=== PATIENT | male | born 2000 | race Caucasian/White ===

== ENCOUNTER 2022-05-17 13:43 | Emergency (ER) | payer OTHER, SELFPAY ==
--- NOTE | ~2022-05-17 | XR_ITS ---
EXAMINATION: XR chest 2V Exam Date/Time: 05/17/2022 17:40 ELECTRICAL TEST TECHNICIAN HISTORY: chest and burning back pain X 1WK, NO CARDIAC HX, NO LUNG HX Comparison: 04/02/2005. RESULT: Lines, tubes, and devices: None. Lungs and pleura: Clear. Cardiomediastinal silhouette: Unremarkable. Other: No acute osseous or upper abdominal finding. IMPRESSION: No acute cardiopulmonary process. Reviewed, dictated and finalized at location K. TRICAL TEST TECHNICIAN
[2022-05-17 14:09] VITALS: BP 173/96; PULSE 75; RESP 16; O2SAT 99
--- NOTE | 2022-05-17 14:14 | ECG_ITS ---
Measurements Intervals [place] Rate: 77 P: 5 [place]: 121 QRS: 73 QRSD: 85 T: 20 QT: 358 QTc: 406 Interpretive Statements SINUS RHYTHM DELAYED PRECORDIAL R/S TRANSITION BORDERLINE ECG NO PREVIOUS ECG AVAILABLE FOR COMPARISON Electronically Signed On 05-17-2022 18:35:31 POST MANAGER by Joe Millan D.O.
[2022-05-17 16:19] LABS: Basophils Percent Auto 0.6 % (0.2-1.2); Eosinophils Percent Auto 0.6 % (0-4.4); Hematocrit 46.5 % (42.0-52.0); Hemoglobin 16.1 g/dL (14.0-18.0); Immature Granulocyte Absolute 0.02 K/mm3 (0.00-0.031); Immature Granulocyte Percent A 0.3 % (0-0.5); Lymphocytes Absolute Auto 0.83 K/mm3 (0.9-3.2); Lymphocytes Percent Auto 12.5 % (18.3-44.2); Mean Corpuscular HGB Conc 34.6 g/dl (32-36); Mean Corpuscular Hemoglobin 30.7 pg (26-34); Mean Corpuscular Volume 88.7 fl (80-100); Mean Platelet Volume 9.2 fl (7.4-10.4); Monocytes Absolute Auto 0.3 K/mm3 (0.1-0.6); Neutrophils Absolute Auto 5.4 K/mm3 (1.3-6.7); Platelet Count Result 266 k/mm3 (150-375); Red Blood Count 5.24 M/mm3 (4.6-6.20); Red Cell Distribution Width 12.2 % (11.5-14.5); White Blood Count 6.6 K/mm3 (4.5-10.0)
[2022-05-17 16:20] LABS: Add Urine Microscopic? NO; Appearance Urine Clear (Clear); Bilirubin Urine Negative (Negative); Blood Urine Negative (Negative); Color Urine Yellow (Yellow); Glucose Urine UA Negative (Negative); Ketones Urine Negative (Negative); Leukocyte Esterase Ur Negative LEU/UL (Negative); Nitrate Urine Negative (Negative); Protein Urine Negative (Negative); Specific Grav Ur 1.025 (1.001-1.035); Urobilinogen Urine 0.2 mg/dL (<2.0); pH Urine 6.5 (5.0-9.0)
[2022-05-17 16:31] LABS: Alanine Aminotransferase 32 U/L (6-50); Albumin Level 4.8 g/dL (3.5-5.1); Alkaline Phosphatase 51 U/L (38-126); Anion Gap 8 mmol/L (8-16); Aspartate Amino Transferase 30 U/L (17-59); Bilirubin,Total 1.3 mg/dL (0.2-1.3); Blood Urea Nitrogen 16 mg/dL (9-20); Calcium 9.3 mg/dL (8.4-10.2); Carbon Dioxide 27 mmol/L (22-30); Chloride 105 mmol/L (98-107); Estimated CRCL calculation 107 ml/min; Estimated Glomerular Filt Rate > 60; Glucose 93 mg/dL (65-110); Lipase 86 U/L (23-300); Potassium 4.3 mmol/L (3.4-5.0); Sodium 140 mmol/L (137-145)
[2022-05-17] MEDS: SODIUM CHLORIDE 0.9% IV 1,000 ML 999 ML IV CONT (17:30)
--- NOTE | 2022-05-17 17:35 | ED.GENADULT ---
HPI - General Adult General Chief complaint: Abdominal Pain Stated complaint: burning in back and chest Time Seen by Provider: 05/17/22 17:16 History of Present Illness HPI narrative: 22-year-old male presenting to the emergency department for evaluation of back pain and chest pain. Patient states yesterday he developed some midline back pain that he described as burning. Patient denies anything that affects the pain. Patient states this morning when he woke up he also had some burning into his chest. Patient denies any current chest pain or shortness of breath. Patient denies any prior history of coronary disease, cardiac issues or gallbladder disease. Patient describes the pain between his shoulder blades as a 2 out of 10. Does have history of asthma. Related Data Allergies Allergy/AdvReac Type Severity Reaction Status Date / Time nickel Allergy Mild Verified 11/06/09 14:50 Review of Systems Review of Systems: CONSTITUTIONAL: Denies fever, chills, or sweats. EYES: Denies visual changes, redness, or discharge. ENT: Denies rhinorrhea, congestion, sore throat, or otalgia. CARDIOVASCULAR: See HPI RESPIRATORY: Denies cough or dyspnea. GASTROINTESTINAL: Denies abdominal pain, nausea, vomiting, or diarrhea. GENITOURINARY: Denies dysuria or hematuria. SKIN: Denies rash or itching. MUSCULOSKELETAL: See HPI NEUROLOGIC: Denies headache, numbness, or weakness. Exam Narrative: APPEARANCE: Well appearing, no pain, no distress, well-nourished. HEAD: normocephalic, atraumatic. EYES: PERRLA/EOMI, conjunctivae clear. NOSE: Normal no drainage NECK: Supple. No adenopathy, no masses. RESPIRATORY: Airway patent, respirations nonlabored. Clear to auscultation bilaterally, no rales, rhonchi, wheezing. CARDIOVASCULAR: Regular rate and rhythm without murmurs rubs or gallops. ABDOMINAL: Soft, nontender, nondistended, normal bowel sounds MUSCULOSKELETAL: Moves all extremities. Strength/ROM intact, No edema, No calf tenderness. NEURO: Alert. Cranial nerves II through XII intact. Grossly intact SKIN: Warm, dry. Normal Color Course Course Emergency Course: Patient had a negative chest x-ray was afebrile with no leukocytosis. Patient's electrolytes are within normal limits and patient had a negative UA. Patient's pain is somewhat reproducible with palpation so I suspect muscular etiology over PE, ACS, pleuritis, or referred pain from gallbladder disease. Patient and family were updated on the results of the work-up and they were comfortable with the discharge plan for close follow-up with the patient's primary care physician. This is already scheduled for Tuesday. All questions and concerns were addressed. Vital Signs Vital signs: Vital Signs Pulse Rate 75 05/17/22 14:09 Respiratory Rate 16 05/17/22 14:09 Blood Pressure 173/96 H 05/17/22 14:09 Pulse Oximetry 99 05/17/22 14:09 Pulse Rate 74 05/17/22 19:13 Respiratory Rate 16 05/17/22 19:13 Blood Pressure 173/96 H 05/17/22 14:09 Pulse Oximetry 94 05/17/22 19:13 Medical Decision Making Vital Signs Vital Signs: Vital Signs Pulse Rate 75 05/17/22 14:09 Respiratory Rate 16 05/17/22 14:09 Blood Pressure 173/96 H 05/17/22 14:09 Pulse Oximetry 99 05/17/22 14:09 Pulse Rate 74 05/17/22 19:13 Respiratory Rate 16 05/17/22 19:13 Blood Pressure 173/96 H 05/17/22 14:09 Pulse Oximetry 94 05/17/22 19:13 Lab Data Lab results reviewed: Yes I reviewed the patient's lab results. 05/17/22 16:00 05/17/22 16:00 Labs: Lab Results 05/17/22 05/17/22 05/17/22 Range/Units 16:00 16:00 16:00 WBC 6.6 (4.5-10.0) K/mm3 RBC 5.24 (4.6-6.20) M/mm3 Hgb 16.1 (14.0-18.0) g/dL Hct 46.5 (42.0-52.0) % MCV 88.7 (80-100) fl MCH 30.7 (26-34) pg MCHC 34.6 (32-36) g/dl RDW 12.2 (11.5-14.5) % Plt Count 266 (150-375) k/mm3 MPV 9.2 (7.4-10.4) fl Immature Gran % (Auto) 0.
[2022-05-17] MEDS: PANTOPRAZOLE SODIUM IV 40 MG VIAL IV PUSH (17:54)
[2022-05-17] MEDS: BELLADONNA ALK/PHENOB ELIX 10 ML, MAG HYDROX/ALUMINUM HYD/SIMETH 30 ML, LIDOCAINE HCL 2... PO (17:55)
[2022-05-17 17:56] LABS: Amphetamine Screen Urine Negative (Negative); Barbiturate Screen Urine Negative (Negative); Benzodiazepines Screen Urine Negative (Negative); Cannabinoid Screen Urine Positive (Negative); Cocaine Screen Urine Negative (Negative); Methadone Screen Urine Negative (Negative); Opiate Screen Urine Negative (Negative); Phencyclidine Screen Urine Negative (Negative)
[2022-05-17 19:13] VITALS: PULSE 74; RESP 16; O2SAT 94
== END 2022-05-17 19:14 | disposition home or self-care (01) ==
PROVIDERS: Emergency Provider Emergency Medicine
DX: M54.9 Dorsalgia, unspecified (principal)
CPT/HCPCS: 36415; 71046; 80053; 80307; 81003; 83690; 85025; 93005; 96361; 96374; 99284; A9270; C9113; J7030

== ENCOUNTER 2022-05-31 07:49 | Outpatient (CLI) | payer OTHER, SELFPAY ==
--- NOTE | ~2022-05-31 | CT_ITS ---
EXAMINATION: CTA chest DATE: 05/31/2022 08:22 INDICATION: Chest pain TECHNIQUE: Computed tomography angiography (CTA) of the chest was performed with 100 mL Omnipaque-350 intravenous contrast timed to evaluate the pulmonary arteries. Coronal maximum intensity projection 3D-reconstructions were created by the technologist. Automated exposure control and iterative reconst ruction technique were employed. Exam dose: 508.90 mGy-cm total exam DLP. COMPARISON: 05/17/2022 PA and lateral chest FINDINGS: There is diagnostic contrast enhancement of the pulmonary arteries and no evidence of pulmonary embol ism. The lungs are clear of infiltrate or consolidation. Normal heart size. No pericardial or pleural effusion. No hilar or mediastinal mass lesion or lymphadenopathy. No thoracic aortic aneurysm or dissection. Normal morphology of the adrenal glands. Included skeletal structures are unremarkable. IMPRESSION: Negative examination; no evidence of pulmonary embolism Reviewed, dictated and finalized at Location A. Reviewed, dictated and finalized at location B. RITY SUPERVISOR
== END 2022-05-31 07:50 | disposition home or self-care (01) ==
DX: R07.9 Chest pain, unspecified (principal)
CPT/HCPCS: 71275; Q9967

== ENCOUNTER 2024-08-24 13:41 | Outpatient (CLI) | payer OTHER, SELFPAY ==
--- OUTSIDE RECORDS SUMMARY | 2024-08-24 13:44 | XMS_ITS | Clinical Summary ---
Author Organization [facility] Address [address] [place] [address] Care Team Providers Care Berry Picker Name Role Phone Unavailable Primary Care Provider Unavailabl e Immunizations Immunization Administration Dates Next Due Covid-19, Mrna, Lnp-s, Pf, 30 Mcg/0.3 Ml Dose (P fizer) 02/12/2021 Social History Tobacco Use Types Packs/Day Years Used Date Smoking Tobacco: Never Assessed Sex and Gender Information Value Date Recorded Sex Assigned at Not on file Legal Sex Male 4:56 PM CDT Gender Identity Not on file Sexual Orientation Not on file Plan of Treatment Health Maintenance Due Date Last Done Comments Hepatitis C Virus (HCV) Screening 1999 Influenza Immunization (#1) 2024 01/25/2017 SARS-COV-2 Immunization ( season) 2024 02/12/2021, 09/03/2020 Respiratory Syncytial Virus (RSV) Immunization (Adult) (1 - 1-dose 75+ series) 2074 Hepatitis B Immunization Completed 001, 1999, 1999 Pneumococcal Immunization Combined Completed 09/07/2000, 05/23/2000 DTaP/Tdap/Td Immunization Discontinued 2015, 12/19/2015, 12/04/2009, Additional history exists Meningococcal Immunization (ACWY) Completed 12/19/2015, 12/15/2010 TdaP Immunization Completed 12/19/2015, 12/04/2009 Human Papillomavirus (HPV) Immunization Completed 01/25/2017, 12/19/2015, 12/12/2014 Meningococcal B Immunization Discontinued 01/25/2017 Rotavirus Immunization Aged Out No lo nger eligible based on patient's age to complete this topic
--- OUTSIDE RECORDS SUMMARY | 2024-08-24 13:44 | XMS_ITS | Referral Summary ---
Author Organization [facility] Address [address] [place] [id number] Care Team Providers Care Ironing Pleater Name Role Phone Mario Alberto Soto MD Primary Care Provider Allergies Active Allergy Reactions Criticality Noted Date Comments Pollen Extracts Rhinitis Medium 11/29/2019 Medications albuterol HFA (PROVENTIL HFA,VENTOLIN HFA,PROAIR HFA) 90 mcg/actuation inhaler Inhale 2 puffs every 6 (six) hours as needed for wheezing 1 each 1 05/19/2022 Active Active Problems Problem Noted Date Diagnosed Date Disorder of scapula 10/20/2018 Overview (10/20/2018): Suspect mild winging of left scapula. Referral to Orthopedics for further evaluation. Non-seasonal allergic rhinitis due to pollen 08/2018 Acne vulgaris 08/26/2017 Eczema 08/26/2017 Neoplasm of skin 08/26/2017 Paresthesia 01/06/2016 Overview (10/20/2018): Last Assessment & Plan: 15 yo of male othewise healthy with only numbness on medial plantar aspect of both great toes and left lateral mid thighs. The numbness of the toes most likely from skin calluses. Left thigh numbness Without tingling and burning pain suggest superficial femoral nerve involvement which could be from wearing tight jeans or sleeping on something or wearing belts that can compress nerves. Not sure of mechanism right now. Will need to keep an eye if the symptoms are progressing or relieved on its own. Plan: Please wear proper shoes. Please wear Loose pants. Try not to sleep on the Left side of the body. If continues to get worse with new patches of numbness, or the area is growing bigger then contact Neurology clinic to get MRI of the pelvic or thigh region. Please call Dr. Aragon in 1 month with symptoms update on [phone]. Follow up in 6 months. Closed fracture of nasal bone 11/13/2009 Laceration 11/13/2009 Overview (10/20/2018): facial Immunizations Immunization Administration Dates Next Due DTaP, Unspecified 08/05/2004, 1,1999,10/04,1999 HPV, Quadrivalent 01/25/2017,12/19/2015,12/13/19 15 HPV, Unspecified 01/25/2017,12/29/2015, 5 Hep A, Unspecified 12/15/2011,12/15/2010 Hep B, Unspecified 09/07/2000, 0,1999, HiB 09/07/2000, 0,1999, IPV 08/05/2004, 0,1999, Influenza, Quadrivalent, Spl it, Preservative Free, Intramuscular 03/18/2021 Influenza, Unspecified 01/25/2017 MMR 08/05/2004,05/23/2000 Meningococcal ACWY, Unspecified 01/25/2017,12/18,12/15/2010 Meningococcal B, Recombinant (Trumenba) 01/25/2017 Meningococcal Conjugate (Menveo) 12/19/2015 Meningococcal MCV4P (Menactra) 12/15/2010 Pneumococcal Conjugate PCV 13 09/07/2000, 001 Polio, Unspecified 08/05/2004, 0,1999, Td, Unspecified 12/19/2015 Tdap 12/19/2015,12/04/2009 Varicella 12/04/2009,05/23/2000 Social History Tobacco Use Types Packs/Day Years Used Date Smoking Tobacco: Never Smokeless Tobacco: Never Alcohol Use Standard Drinks/Week Comments Yes 0 (1 standard drink = 0.6 oz pur e alcohol) 2 AUDIT-C Answer Date Recorded Q1: How often do you have a drink containing alc ohol? 2-3 times a week 11/19/2021 Q2: How many drinks containi ng alcohol do you have on a typical day when you are drinking? 3 or 4 11/19/2021 Q3: How often do you have si x or more drinks on one occasion? 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) Not on file Not on file Not on file Last Filed Vital Signs Vital Sign Reading Time Taken Comments Blood Pressure 140/88 05/19/2022 11:13 AM ASSISTANCE COORDINATOR Pulse 74 05/19/2022 10:47 AM ASSISTANCE COORDINATOR Temperature 37.6 C (99.7 F) 05/04/2021 3:16 PM ASSISTANCE COORDINATOR Respiratory Rate 14 05/04/2021 3:16 PM ASSISTANCE COORDINATOR Oxygen Saturation 97% 05/04/2021 3:16 PM ASSISTANCE COORDINATOR Inhaled Oxygen Concentration - - Weight 85.1 kg (187 lb 9.6 oz) 05/19/2022 10:47 AM ASSISTANCE COORDINATOR Height 185.4 cm (6' 1 ) 11/19/2021 12:38 PM CDT Body Mass Index 24.75 11/19/2021 12:38 PM CDT Plan of Treatment Not on file Insurance [facility] Member Subscriber Plan / Payer (Ef fective 2018-Present) Name:Levon Wiseman Member ID:[id number] Relation to Subscriber:Child Name:MARI WISEMAN Subscriber ID:[id number] Date of :1969 (Home) Address: [address] [place] [id number] Payer ID:[id number] Type:HEALTHLINK HMO/PPO Address: [address] [facility] [address] Care Teams Ironing Pleater Relationship Specialty Start Date End Date Mario Alberto Soto MD [facility] [facility] [address] [place] [address] PCP - General Internal Medicine 10/17/18
--- OUTSIDE RECORDS SUMMARY | 2024-08-24 13:44 | XMS_ITS | Clinical Summary ---
Author Organization [facility] Address [address] [place] [id number] Care Team Providers Care Solution Specialist Name Role Phone Mario Alberto Soto MD Primary Care Provider [phone] Allergies Active Allergy Reactions Criticality Noted Date [...] in 1 month with symptoms update on [phone]. Follow up in 6 months. 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 on file Not on file Not on file Obstetrics History Last Filed Vital Signs Vital Sign Reading Time Taken Comments Blood Pressure 140/88 05/19/2022 11:13 AM PROCESS ASSISTANT Pulse 74 05/19/2022 10:47 AM PROCESS ASSISTANT Temperature 37.6 C (99.7 F) 05/04/2021 3:16 PM PROCESS ASSISTANT Respiratory Rate 14 05/04/2021 3:16 PM PROCESS ASSISTANT Oxygen Saturation 97% 05/04/2021 3:16 PM PROCESS ASSISTANT Inhaled Oxygen Concentration - - Weight 85.1 kg (187 lb 9.6 oz) 05/19/2022 10:47 AM PROCESS ASSISTANT Height 185.4 cm (6' 1 ) 11/19/2021 12:38 PM CDT Body Mass Index 24.75 11/19/2021 12:38 PM CDT Plan of Treatment Health Maintenance Due Date Last Done Comments Hepatitis C Screening 1999 Regular Well Visit/Exam 18-64 10/18/2019 10/17/2018 Depression Screening 11/19/2022 11/19/2021, 10/18/19 19 Covid-19 Vaccine (2023-2 5 season) 2024 02/12/2021, 09/03/2020 Influenza Vaccine (#1) 2024 03/18/2021, 2016 DTaP/Tdap/Td Vaccine (9 - Td or Tdap) 12/18/2025 12/19/2015, 12/19/2015, 12/04/2009, Additional history exists Hepatitis B Screening Completed 09/07/2000 , 1999, 1999, Additional history exists Pneumococcal vaccine <65 Completed 09/07/2000, 12/2000 Varicella Vaccines Completed 12/04/2009, 05/23/2000 HPV Vaccines Completed 01/25/2017, 01/14, 12/29/2015, Additional history exists Insurance [facility] Member Subscriber Plan / Payer (Ef fective 2018-Present) Name:Levon Wiseman Member ID:[id number] Relation to Subscriber:Child Name:SANTOSHMARI Subscriber ID:[id number] Date of :1969 (Home) Address: [address] [place] [id number] Payer ID:[id number] Type:HEALTHLINK HMO/PPO Address: [address] [facility] [id number] Member Subscriber Plan / Payer (Ef fective 2020-Present) Name:Levon Wiseman Member ID:[id number] Relation to Subscriber:Self Name:Levon Wiseman Subscriber ID:[id number] Payer ID:[id number] Type:HEALTHLINK HMO/PPO Address: [facility] [id number] [place] [phone] Care Teams Solution Specialist Relationship Specialty Start Date End Date Mario Alberto Soto MD [address] [place] [address] [address] Aurel[address] THAKKAR [address] [place] [id number] PCP - General Internal Medicine 10/17/18
--- OUTSIDE RECORDS SUMMARY | 2024-08-24 13:44 | XMS_ITS | Clinical Summary ---
Author Organization [facility] Address [address] [place] [address] Care Team Providers Care Vegetable Scullion Name Role Phone Ryann Chowdhury MD Primary Care Provider Source Comments [facility],non-owned Affiliates and Associated Physician Practices is amultiple site organization consisting of ambulatory clinics and hospital sitesin [place], [place], [place] and [place]. This disclosure is being madepursuant to the Care Everywhere program and may not contain all information available regarding this patient. Last updated 18.[facility] Allergies Active Allergy Reactions Criticality Noted Date Comments Other 11/07/2009 Elaine, bubbly rash Active Problems Problem Noted Date Diagnosed Date Paresthesia 01/06/2016 Assessment & Plan (02/01/2016 8:03 PM CDT): 15 yo of male othewise healthy with [...] in 1 month with symptoms update on [phone]. Follow up in 6 months. Closed fracture of nasal bone 11/13/2009 Laceration 11/13/2009 Overview (11/13/2009): facial Family History Medical History Relation Name Comments Asthma Father Cancer Maternal Grandmother meningi lee ann Hypertension Mother Migraine Mother Cancer Paternal Grandmother Meningi lee ann Asthma Sister Relation Name Status Comments Father Alive Maternal Grandmother Mother Alive Paternal Grandmother Sister Alive Social History Tobacco Use Types Packs/Day Years Used Date Smoking Tobacco: Never Alcohol Use Standard Drinks/Week Comments Not Asked 0 (1 standard drink = 0.6 oz pur e alcohol) Sex and Gender Information Value Date Recorded Sex Assigned at Not on file Gender Identity Not on file Sexual Orientation Not on file Last Filed Vital Signs Vital Sign Reading Time Taken Comments Blood Pressure 138/78 01/30/2016 1:21 PM CDT Pulse 74 12/19/2015 1:39 PM CDT per p cp Temperature 36.7 C (98 F) 12/19/2015 1:39 PM CDT per pcp Respiratory Rate 26 12/19/2015 1:39 PM CDT p er pcp Oxygen Saturation - - Inhaled Oxygen Concentration - - Weight 70.3 kg (154 lb 15.7 oz) 01/30/2016 1:21 PM CDT Height 182.5 cm (5' 11.85 ) 01/30/2016 1:21 PM C DT Body Mass Index 21.11 01/30/2016 1:21 PM CDT Plan of Treatment Health Maintenance Due Date Last Done Comments HIV SCREENING 2014 HPV VACCINE (1 - Male 3-dose series) 2014 HEPATITIS C SCREENING 04/26/2017 DTAP/TDAP/TD VACCINES (1 - Tdap) 2018 HEPATITIS B VACCINE (1 of 3 - 19+ 3-dose series) 2018 COVID-19 VACCINE (1 - 2023-2 5 season) 2024 DEPRESSION SCREENING 05/16/2024 INFLUENZA VACCINE (Season Ended) 2025 ZOSTER VACCINE (1 of 2) 2049 HIB VACCINE Aged Out No longer eligi ble based on patient's age to complete this topic MENINGOCOCCAL (Group B) VACC INE SHARED DECISION-MAKING Aged Out No longer eligibl e based on patient's age to complete this topic MENINGOCOCCAL GROUPS A/C/Y/W VACCINE Aged Out No longer eligible b ased on patient's age to complete this topic PNEUMOCOCCAL VACCINE Aged Out No long er eligible based on patient's age to complete this topic Care Teams Vegetable Scullion Relationship Specialty Start Date End Date Ryann Chowdhury MD [address] [place] [address] [address] [place], [place] [id number] PCP - General Pediatrics 12/23/15
== END 2024-08-24 13:42 | disposition home or self-care (01) ==
DX: R00.2 Palpitations (principal)
CPT/HCPCS: 93242